=== PATIENT | male | born 1965 | race Caucasian/White ===

== ENCOUNTER 2018-05-06 20:55 | Emergency (ER) | payer BC, OTHER ==
[~2018-05-06] VITALS: Ht 180.3 cm; Wt 102.0 kg
[~2018-05-06 20:55] MED LIST: CELE10TA9 PO; MIRT7.5T10 PO
[2018-05-06 21:22] VITALS: BP 151/83; PULSE 74; RESP 18; TEMP 98.8; O2SAT 98
[2018-05-06 21:56] VITALS: BP 152/91; PULSE 77; RESP 16; O2SAT 97
--- NOTE | 2018-05-06 21:57 | PD ---
HPI Chief Complaint: General Weakness Time Seen by Provider: 21:57 Travel History International Travel<30 days: No Contact w/Intl Traveler<30days: No Traveled to known affect area: No History of Present Illness HPI 52-year-old male came to the emergency room sent from the urgent care for constant cramping of his both hands and legs. Patient says this is causing pain. He says it is continuing given as he was talking to me although I did not see any carpopedal spasms or objective cramps. Vital signs are stable. Patient was recently started about 3-4 weeks ago on a new pain medication drug called Hysingla ER by his primary care. Patient does not from this town or state. He says he is not going to see his doctor for another few days. However because of this concern the [facility] sent him here. No history of vomiting or diarrhea. Patient says he has been somewhat dizzy as well. No aggravating or relieving symptoms of the pain identified. [facility] Past Medical History Narrative Medical List of his past medical, surgical, social and family history is reviewed from the nursing note Depression: Yes Cancer: No Cardiovascular Problems: No Gastrointestinal Disorders: Yes (CELIAC DISEASE) Genitourinary: No Musculoskeletal: Yes Neurologic: Yes Psychiatric: No Respiratory: No Past Surgical History Abdominal Surgery: Yes (CHOLECYSTECTOMY) Cholecystectomy: Yes Oral Surgery: Yes (TONSILECTOMY) Other Surgery: Yes (X2 VARICOCELE SX) Social History Alcohol Use: No Tobacco Use: No Substance Use: No Allergies-Medications (Allergen,Severity, Reaction): Coded Allergies: No Known Allergies (Verified Adverse Reaction, Unknown, 05/06/18) Comments No known drug allergies. Reported Meds & Prescriptions Reported Meds & Active Scripts Active Reported Hysingla ER (Hydrocodone ER) 40 Mg Jovan BID Narrative Medication List of his home medications reviewed from the nursing note Review of Systems Except as stated in HPI: all other systems reviewed are Neg Musculoskeletal: Positive: Pain Physical Exam Narrative GENERAL: Awake, alert, anxious SKIN: Focused skin assessment warm/dry. HEAD: Atraumatic. Normocephalic. EYES: Pupils equal and round. No scleral icterus. No injection or drainage. ENT: No nasal bleeding or discharge. Mucous membranes pink and moist. NECK: Trachea midline. No JVD. CARDIOVASCULAR: Regular rate and rhythm. No murmur appreciated. RESPIRATORY: No accessory muscle use. Clear to auscultation. Breath sounds equal bilaterally. GASTROINTESTINAL: Abdomen soft, non-tender, nondistended. Hepatic and splenic margins not palpable. MUSCULOSKELETAL: No obvious deformities. No clubbing. No cyanosis. No edema. NEUROLOGICAL: Awake and alert. No obvious cranial nerve deficits. Motor grossly within normal limits. Normal speech. PSYCHIATRIC: Appropriate mood and affect; insight and judgment normal. Data Data Last Documented VS Vital Signs Date Time Temp Pulse Resp B/P (MAP) Pulse Ox O2 Delivery O2 Flow Rate FiO2 05/06/18 23:46 05/06/18 22:58 62 20 98 Room Air 05/06/18 21:22 98.8 Orders Orders Complete Blood Count With Diff (05/06/18 22:23) Basic Metabolic Panel (Bmp) (05/06/18 22:23) Magnesium (Mg) (05/06/18 22:23) Sodium Chlor 0.9% 1000 Ml Inj (Ns 1000 M (05/06/18 22:30) Electrocardiogram (05/06/18 ) Patient Services Specialist / Telemetry [email or web address] (05/06/18 22:23) Ed Discharge Order (05/06/18 23:04) Creatine Kinase (Cpk) (05/06/18 22:35) Labs Laboratory Tests Test 05/06/18 22:35 White Blood Count 7.5 TH/MM3 Red Blood Count 5.31 MIL/MM3 Hemoglobin 15.2 GM/DL Hematocrit 43.4 % Mean Corpuscular Volume 81.7 FL Mean Corpuscular Hemoglobin 28.5 PG Mean Corpuscular Hemoglobin Concent 34.9 % Red Cell Distribution Width 12.3 % Platelet Count 216 TH/MM3 Mean Platelet Volume 7.9 FL Neutrophils (%) (Auto) 53.9 % Lymphocytes (%) (Auto) 32.7 % Monocytes (%) (Auto) 5.2 % Eosinophils (%) (Auto) 7.8 % Basophils (%) (Auto) 0.4 % Neutrophils # (Auto) 4.0 TH/MM3 Lymphocytes # (Auto) 2.5 TH/MM3 Monocytes # (Auto) 0.4 TH/MM3 Eosinophils # (Auto) 0.6 TH/MM3 Basophils # (Auto) 0.0 TH/MM3 CBC Comment DIFF FINAL Differential Comment Blood Urea Nitrogen 15 MG/DL Creatinine 0.93 MG/DL Random Glucose 95 MG/DL Calcium Level 8.8 MG/DL Magnesium Level 2.6 MG/DL Sodium Level 140 MEQ/L Potassium Level 3.8 MEQ/L Chloride Level 107 MEQ/L Carbon Dioxide Level 25.8 MEQ/L Anion Gap 7 MEQ/L Estimat Glomerular Filtration Rate 85 ML/MIN Total Creatine Kinase 189 U/L MDM Medical Decision Making Medical Screen Exam Complete: Yes Emergency Medical Condition: Yes Medical Record Reviewed: Yes Interpretation(s) Twelve-lead EKG was reviewed by me. Normal sinus rhythm, left axis deviation, incomplete right bundle branch block, nonspecific ST-T wave changes. Heart rate of 63 bpm Differential Diagnosis Electrolyte abnormality, hypocalcemia, hypomagnesemia, hypokalemia Narrative Course 11:07 PM patient was given IV fluid bolus. Blood test results are back and electrolytes are within normal limits except for magnesium which is slightly high. However this would not explain patient's condition. I looked up on the adverse reactions of the new medication and did not find specifically muscle cramps. QT prolongation was an issue but his EKG did not show QT prolongation. At this point I am comfortable discharging him home. Procedures EKG Prior to Arrival: No Diagnosis Primary Impression: Muscle cramps Referrals: Primary Care Physician Additional Instructions: Drink lots of fluid. Return to the ER if condition worsens or any other new concerns. Otherwise follow-up with your primary care. Disposition: 01 DISCHARGE HOME Condition: Stable Ham Silva MD May 06, 2018 21:57
[2018-05-06] MEDS ORDERED: HYDR-3677 (22:04)
[2018-05-06] MEDS ORDERED: SODIUM CHLOR 0.9% 1000 ML INJ 1,000 ML IV ONE (22:30)
[2018-05-06 22:44] LABS: BASOPHIL % 0.4 % (0.0-2.0); EOSINOPHIL # 0.6 TH/MM3 (0-0.4); EOSINOPHIL % 7.8 % (0.0-4.0); HEMATOCRIT 43.4 % (39.0-51.0); HEMOGLOBIN 15.2 GM/DL (13.0-17.0); LYMPH % 32.7 % (9.0-44.0); LYMPHOCYTE # 2.5 TH/MM3 (1.0-4.8); MEAN CELL VOLUME 81.7 FL (80.0-100.0); MEAN CORPUSCULAR HEMOGLOBIN 28.5 PG (27.0-34.0); MEAN CORPUSCULAR HGB CONC 34.9 % (32.0-36.0); MEAN PLATELET VOLUME 7.9 FL (7.0-11.0); MONO % 5.2 % (0.0-8.0); MONOCYTE # 0.4 TH/MM3 (0-0.9); NEUT % 53.9 % (16.0-70.0); PLATELET COUNT 216 TH/MM3 (150-450); RED BLOOD COUNT 5.31 MIL/MM3 (4.50-5.90); RED CELL DISTRIBUTION WIDTH 12.3 % (11.6-17.2); WHITE BLOOD COUNT 7.5 TH/MM3 (4.0-11.0)
[2018-05-06 22:50] LABS: BICARBONATE 25.8 MEQ/L (21.0-32.0); CALCIUM 8.8 MG/DL (8.5-10.1); MAGNESIUM 2.6 MG/DL (1.5-2.5)
[2018-05-06 22:54] LABS: CREATININE 0.93 MG/DL (0.60-1.30)
[2018-05-06 22:58] VITALS: BP 146/87; PULSE 62; RESP 20; O2SAT 98
--- NOTE | 2018-05-07 09:07 | EKG ---
Date Performed: 05/06/2018 Time Performed: 22:45:34 PTAGE: 52 years EKG: Sinus rhythm LEFT AXIS DEVIATION INCOMPLETE RIGHT BUNDLE BRANCH BLOCK MINIMAL VOLTAGE CRITERIA FOR LVH, CONSIDER NORMAL VARIANT ABNORMAL ECG PREVIOUS TRACING : 09/02/2012 12.44 DOCTOR: Christopher Win Interpretating Date/Time 05/07/2018 09:05:49
== END 2018-05-06 23:47 | disposition home or self-care (01) ==
LOC: PHED 20:55
DX: R25.2 Cramp and spasm (principal); R94.31 Abnormal electrocardiogram [ECG] [EKG]; R42 Dizziness and giddiness; F32.9 Major depressive disorder, single episode, unspecified; K90.0 Celiac disease
CPT/HCPCS: 80048; 82550; 83735; 85025; 93005; 96360; 99284; J7030